=== PATIENT | male | born 1950 | race Caucasian/White ===

== ENCOUNTER → 2016-07-21 | Outpatient (CLI) | payer BC ==
[~2016-07-21] MED LIST: ACETTAB15; AMLO2.5T PO; ASPI-589 PO; CRS20 PO; GEMF600T3 PO; LSN5 PO; MULT-506 PO; NTRSLP4 SL; OMEG10007 PO; PLV75 PO; TPRSR25 PO
[2016-07-21 20:20] LABS: LYME DISEASE AB IGG NEG (NEG); LYME DISEASE AB IGM NEG (NEG)
== END | disposition home or self-care (01) ==
LOC: C.LABMFLN 07:50
PROVIDERS: ATTEND Family Medicine
DX: A69.20 Lyme disease, unspecified (principal)

== ENCOUNTER 2016-11-09 06:36 | Observation (INO) | payer BC ==
[2016-11-09] VITALS (15 sets, daily range): BP systolic 121–170; BP diastolic 80–90; PULSE 53–76; TEMP 36.4–36.7; O2SAT 95–99; Ht 167.6 cm; Wt 81.7 kg
[~2016-11-09] VITALS: Ht 167.6 cm; Wt 81.7 kg
[2016-11-09] MEDS ORDERED: GEMF600T3 PO (07:04)
[2016-11-09] MEDS ORDERED: MULT-506 PO (07:04)
[2016-11-09] MEDS ORDERED: ACETTAB14 (07:04)
[2016-11-09] MEDS ORDERED: OMEG10007 PO (07:04)
[2016-11-09] MEDS ORDERED: ASPI-589 PO (07:04)
[2016-11-09] MEDS ORDERED: AMLO2.5T PO (07:04)
[2016-11-09] MEDS ORDERED: NiCARDipine HCL INJ 2.5 MG/ML 10 ML AMP ONE (07:08)
[2016-11-09] MEDS ORDERED: FENTANYL CITRATE INJ 50 MCG/1 ML 2 ML VIAL ONE (07:08)
[2016-11-09] MEDS ORDERED: HEPARIN SOD (PORCINE) 1000 UNIT/ML 10 ML VIAL ONE ×2 (07:08→09:21)
[2016-11-09] MEDS ORDERED: MIDAZOLAM HCL 1 MG/ML 2ML VIAL ONE (07:08)
[2016-11-09] MEDS ORDERED: NITROGLYCERIN/D5W 100MCG/ML 20ML SYR ONE (07:09)
--- NOTE | 2016-11-09 09:06 | History & Physical Bridge Note ---
H&P Re-Evaluation Bridge Note: I have examined the patient, reviewed the History & Physical and in the interval since the performance of the History & Physical I have noted the following changes of clinical significance: No changes noted
--- NOTE | 2016-11-09 09:06 | Procedure Note ---
Pre-Mod Sedation Assessment General Date of Moderate Sedation: Nov 09, 2016. Vital Signs: Vital Signs Past 12 Hours Date Time Temp Pulse Resp B/P (MAP) Pulse Ox O2 Delivery O2 Flow Rate FiO2 11/09/16 06:57 36.4 65 16 170/90 98 Room Air Review Cardiovascular: regular rate, rhythm, no edema, no gallop Abdomen: normal bowel sounds, non tender Lungs: chest non-tender, lungs clear Pre-Sedation Airway Assessment Oral Cavity: WNL Short Thick Neck: No Hx of Sleep Apnea: No Smoking Status: Never Smoker Mallampati Classification: Class II ASA Classification: Class III Procedure Planning Contraindications-for Mod Sed: None Yes Notes The planned sedation has been discussed with the patient and consent obtained. I have identified the patient, determined the appropriateness of sedation and have assessed the patient immediately prior to the procedure. All medicine(s) and interventions are by my order.
--- NOTE | 2016-11-09 09:07 | Procedure Note ---
Post-Mod Sedation Assessment General Date of Moderate Sedation Nov 09, 2016. Vital Signs: Vital Signs Past 12 Hours Date Time Temp Pulse Resp B/P (MAP) Pulse Ox O2 Delivery O2 Flow Rate FiO2 11/09/16 06:57 36.4 65 16 170/90 98 Room Air Review - Discharge Criteria Vital Signs Stable: Yes Alert/Oriented/Conversant: Yes Returned to Baseline Mental St: N/A (sedated for PCI) Nausea Absent/Minimal: Yes Pain/Discomfort/Absent/Minimal: Yes Normal/Baseline Respirations: Yes Active Bleeding?: No Pt Received D/C Instructions: N/A Prescriptions Given: None Specific Proced. D/C Criteria Distal Pulses Present (Cardiac: Yes Groin site assessed-Card Cath: N/A Voided Prior To Discharge: N/A Discharged Patients Adult Escort/Transportation: N/A
[2016-11-09] MEDS ORDERED: CLOPIDOGREL BISULFATE 300 MG TAB PO ONE (09:21)
--- NOTE | 2016-11-09 09:21 | Cardiac Catheterization ---
Procedure Note Procedure Date Nov 09, 2016. Pre-Procedure Diagnosis Angina AUC Score 7 Post-Procedure Diagnosis Severe CAD Procedure(s) Performed Coronary Angiography, Left Heart Cath Svp Dr. Palomo Die Maker Bench Stamping(s) Mayito REHABILITATION INSPECTOR Estimated Blood Loss 3cc Medication(s) Fentanyl, Heparin, Nicardipine, Nitroglycerin, Versed, Lidocaine 1% Summary of Findings 90% mid RCA 50% mid LAD Hemodynamics Rest Ao: 123/76/101 Final Ao: 134/76/100 LV: 132/2/14 Recommendations PCI without planned CABG Specimens None Radiation Exposure (mGy) 1251 Contrast (mls) 60 Anesthesia Moderate sedation. Start 0829, End 0859. Sedation RN : Camille Mathias Procedural Complication(s) None Disposition labor mediator for PCI with Dr. Smith ACC Data Cardiac Status Clinical evaluation leading to the procedure CAD Presntation: Unstable angina Anginal Classification: CCS III Heart Failure: No Cardiogenic Shock w/in 24Hrs: No Cardiac Arrest w/in 24Hrs: No Imaging studies past 6 months: Yes Stress studies past 6 months: Yes Stress Echocardiogram: Yes - Indeterminant Coronary Anatomy Dominant: Right Left Main (% Stenosis): Normal LAD (% Stenosis): Proximal (10%), Mid (50%), Distal (10-20%) D1 (% Stenosis): Proximal (20%), Mid (50% at bifurcation), Distal (10%) D2 (% Stenosis): Normal Circumflex (% Stenosis): Ostial (mild luminal irregularities throughout vessel , 10%) OM1 (% Stenosis): Normal OM2 (% Stenosis): Proximal (20%), Mid (20%), Distal (10%) L PL1 (% Stenosis): Proximal (30%) RCA (% Stenosis): Proximal (90%), Mid (30%), Distal (10%) R PDA (% Stenosis): Proximal (10%), Mid (40%), Distal (10%) R PL1 (% Stenosis): Normal AM (% Stenosis): Normal Diagnostic Status: Elective Closure Device Percutaneous Entry Location: Radial Closure Device: Radial Band Intraprocedure Events Significant Dissection: No Perforation: No
[2016-11-09] MEDS ORDERED: EPTIFIBATIDE 2 MG/ML 10 ML VIAL IV ONE (09:24)
[2016-11-09] MEDS ORDERED: EPTIFIBATIDE 0.75 MG/ML 75MG VIAL IV ONE (09:24)
[2016-11-09] MEDS ORDERED: METOPROLOL SUCC 50MG EXT REL TAB PO STA (10:17)
[2016-11-09] MEDS ORDERED: NITROGLYCERIN 0.4 MG SL PER TAB CHARGE SL PRN (10:30)
[2016-11-09] MEDS ORDERED: ALUMINUM/MAGNESIUM/SIMETH (MAALOX MAX) 30 ML UDC PO PRN (10:30)
[2016-11-09] MEDS ORDERED: MAGNESIUM HYDROXIDE SUSP 30 ML UDC PO PRN (10:30)
[2016-11-09] MEDS ORDERED: MoRPHine SULFATE 2 MG/ML CARP IV PRN (10:30)
[2016-11-09] MEDS ORDERED: ACETAMINOPHEN 325 MG TAB PO PRN ×2 (10:30)
[2016-11-09] MEDS ORDERED: ATROPINE SULFATE 0.1 MG/ML 5ML SYR IV PRN (10:30)
[2016-11-09] MEDS ORDERED: LORAZEPAM INJ 0.5 MG in SYRINGE 0 ML IV PRN (10:30)
[2016-11-09] MEDS ORDERED: EPTIFIBATIDE BOLUS / DRIP IV ONE (10:30)
[2016-11-09] MEDS ORDERED: ATORVASTATIN 40 MG TAB PO ONE (10:30)
[2016-11-09] MEDS ORDERED: ONDANSETRON INJ 2 MG/ML 2 ML VIAL IV PRN (10:30)
[2016-11-09] MEDS ORDERED: ZOLPIDEM TARTRATE 5 MG TAB PO PRN (10:30)
[2016-11-09] MEDS ORDERED: POLYETHYLENE (MIRALAX) 17 GM PACK PO PRN (10:30)
[2016-11-09] MEDS ORDERED: LORAZEPAM 2 MG/ML 1 ML VIAL IV PRN (10:45)
--- NOTE | 2016-11-09 11:24 | Cardiac Catheterization ---
Procedure Note Procedure Date Nov 09, 2016. Pre-Procedure Diagnosis Angina, CAD AUC Score 9 Post-Procedure Diagnosis Successful PCI Procedure(s) Performed Coronary Angiography, PTCA, Drug Eluting Stent Denture Contour Wire Specialist Dr. Smith Corporate Health Consultant(s) MARCIA Vargas Estimated Blood Loss 25 ml Medication(s) Clopidogrel (600 milligrams p.o. post PCI), Heparin, Integrilin, Nicardipine ( Intra-arterial and intracoronary) Summary of Findings Clinical indications: Unstable angina, severe mid right coronary artery stenosis noted on diagnostic cardiac catheterization performed by Dr. Tj Palomo. The patient was referred for intervention to the mid RCA stenosis. Catheterization site: 6 [place] Slender [place] right radial artery. This had been inserted at time of diagnostic catheterization. Equipment: 6 [place] JR4 guide catheter, [place] guidewire, Medtronic Sprinter 2.5 x 12 millimeter balloon dilatation catheter, Hi 4 x 28 millimeter and 4 x 15 millimeter Xience drug-eluting stents, Medtronic NC 4.5 x 15 millimeter Sprinter balloon dilatation catheter. Interventional protocol: Intravenous heparin and Integrilin were administered. A therapeutic activated clotting time was documented. PTCA was then performed with the 2.5 x 15 millimeter balloon to the mid RCA. Two inflations to 8 atmospheres for 15 seconds performed. The 4 by 28 millimeter stent was then deployed all in the mid RCA at a pressure of 10 atmospheres for duration of 45 seconds. Follow-up angiography was performed. Post stent deployment noncompliant balloon inflation was then performed with the NC sprinter balloon. The distal balloon was well inside of the stent. One inflation to 10 atmospheres was performed. Follow-up angiography revealed probable dissection distal to the stent. The NC balloon was withdrawn and a Xience 4 x 15 millimeter stent was then deployed distal to the 1st stent in an overlapping fashion. Deployed at 10 atmospheres for 45 seconds. The overlap site of the 2 stents was post dilated with the stent delivery balloon to a pressure of 14 atmospheres for duration of 15 seconds. Noncompliant balloon was then reinserted and 3 inflations were performed to the proximal mid segments of the stented region in the mid RCA. Maximum inflation pressure of 15 atmospheres and maximum duration 18 seconds. Follow-up angiography was then performed from orthogonal projections with guidewire in place and then guidewire withdrawn. When the dissection was noted the patient complained of mild burning chest discomfort. This resolved after deployment of the 2nd stent. At the completion of the procedure he had no cardiac, coronary, or vascular complaints. He was hemodynamically stable. He was electrically stable. Hemostasis: Terumo TR band. Complications: An edge dissection distal to the 1st stent. This occurred after post stent delivery noncompliant balloon inflation. Successful treatment with deployment of a 2nd stent. Findings: Guiding angiography revealed the RCA to be a large caliber vessel. DIONISIO 2 flow into the PDA and posterolateral branches. 95-99 percent mid RCA stenosis. Mid RCA also had diffuse disease with up to 20-70 percent luminal diameter narrowing. The latter mid RCA had an eccentric 30 percent stenosis. Following initial PTCA DIONISIO 3 flow was present into the distal RCA and its branches. Following deployment of the 1st stent and initial post stent deployment noncompliant balloon inflation an edge dissection was present distal to the 1st stent. This resulted in up to 90 percent luminal diameter narrowing. There remained DIONISIO 3 flow into the PDA and posterolateral branches of the RCA. following deployment of the 2nd stent and post 2nd stent delivery noncompliant balloon inflations the residual stenosis at the stent sites in the mid RCA was 0-10 percent. There was no evidence of any residual dissection. No thrombus, perforation, or distal embolic event. DIONISIO 3 flow in the RCA and its branches. Plan: The patient will remain on intravenous Integrilin for 18 hours. He was given a loading dose of clopidogrel 600 milligrams post PCI. Should remain on dual antiplatelet therapy for at least 1 year. Aspirin therapy indefinitely. He will be started on atorvastatin, metoprolol, and lisinopril therapy. Post PCI labs and electrocardiograms ordered. Will be admitted for observation overnight. Will continue cardiology follow-up with the [facility] cardiology service. Hemodynamics Rest Ao: 123/76/101 mm Hg Final Ao: 163/87/122 mm Hg LV: NA Recommendations Medical therapy and/or Counseling, PCI without planned CABG Specimens None Radiation Exposure (mGy) 3060 total for both diagnostic and interventional procedure Contrast (mls) 270 ml Visipaque total for both procedures Fluids (cc crystalloids) 195 total for both procedures Drains none Anesthesia No additional Procedural Complication(s) Intimal dissection following deployment of 1st stent. This occurred distal to the 1st stent. Treated successfully with deployment of a 2nd stent. Disposition PCU ACC Data Cardiac Status Clinical evaluation leading to the procedure CAD Presntation: Unstable angina Anginal Classification: CCS III Heart Failure: No Cardiogenic Shock w/in 24Hrs: No Cardiac Arrest w/in 24Hrs: No Imaging studies past 6 months: Yes Stress studies past 6 months: Yes Standard Exercise Stress Test: Yes - Indeterminant Diagnostic Physician's Name: Tj Palomo DO Status: Elective Closure Device Percutaneous Entry Location: Radial Lesion Segment Name: Mid RCA Culprit Artery: Yes Stenosis Prior to Rx (%): 95-99 Chronic Total Occlusion: No IVUS: No FFR: No Pre-Procedure DIONISIO Flow: 2 Previously Treated Lesion: No Lesion Complexity: High/C Lesion Length (mm): 30 Thrombus Present: No Bifurcation Lesion: No Guidewire Across Lesion: Yes Guidewire: Stenosis Post-Procedure (%): 0 Post-Procedure DIONISIO Flow: 3 Device(s) Deployed: Yes Type of Device(s): Hi Xience 4 x 28 millimeter and 4 x 15 millimeter drug-eluting stents. Deployed in overlapping fashion. The 4 x 28 millimeter stent was 1st deployed. Following this stent deployment there was an edge dissection distal to the stent. The 4 x 15 millimeter Xience stent was then deployed distal to the 1st stent in an overlapping fashion. The proximal and mid segments of the stented region were post dilated with a 4.5 x 15 millimeter noncompliant balloon. Intraprocedure Events Significant Dissection: Yes (This occurred distal to the 1st stent after post stent noncompliant balloon inflation. Successfully treated with deployment of a 2nd stent.) Perforation: No
[2016-11-09 11:27] LABS: BASO % 0.2 %; BASO ABS # 0.01 K/uL (0-0.2); EOS % 1.2 %; IG% 0.2 %; LYMPH % 38.3 %; MEAN CELL VOLUME 87.7 fL (80-100); MEAN CORPUSCULAR HEMOGLOBIN 30.3 pg (25-34); MEAN PLATELET VOLUME 11.2 fL (7.4-10.4); MONO % 7.2 %; NEUT % 52.9 %; PLATELET COUNT 206 K/uL (130-400); RED BLOOD COUNT 4.79 M/uL (4.7-6.1); WHITE BLOOD COUNT 4.18 K/uL (4.8-10.8)
[2016-11-09] MEDS ORDERED: IV FLUIDS COMPLETED PRN (11:30)
[2016-11-09 11:38] LABS: COMPLETE YES; MEAN CORPUSCULAR HGB CONC 34.5 g/dl (32-36)
[2016-11-09 11:45] LABS: BUN/CREATININE RATIO 22.7 (10-20); CALCIUM 8.7 mg/dl (8.5-10.1); CREATININE 0.74 mg/dl (0.60-1.40); POTASSIUM 4.1 mmol/L (3.5-5.1)
[2016-11-09] MEDS ORDERED: ROSUVASTATIN CALCIUM 20 MG TAB PO ONE (13:20)
[2016-11-09] MEDS: SODIUM CHLORIDE 0.9% 1000ML 1,000 ML IV SCH ×3 (15:32→23:48)
[2016-11-09] MEDS: EPTIFIBATIDE INJ 75 MG PREMIXED IV SCH ×2 (17:04→22:17)
[2016-11-10] VITALS: BP 135/92; PULSE 56; TEMP 37.1; O2SAT 96
[2016-11-10 04:00] VITALS: BP 148/82; PULSE 60; TEMP 36.7; O2SAT 95
[2016-11-10] MEDS ORDERED: Integrelin infusion --> STOP ORDER ONE (04:00)
[2016-11-10 06:13] LABS: BASO % 0.3 %; BASO ABS # 0.02 K/uL (0-0.2); COMPLETE YES; EOS % 1.4 %; HEMATOCRIT 37.9 % (42-52); IG% 0.2 %; LYMPH % 24.7 %; LYMPH ABS # 1.56 K/uL (1.2-3.4); MEAN CELL VOLUME 87.7 fL (80-100); MEAN CORPUSCULAR HEMOGLOBIN 30.8 pg (25-34); MEAN CORPUSCULAR HGB CONC 35.1 g/dl (32-36); MEAN PLATELET VOLUME 10.9 fL (7.4-10.4); MONO % 7.6 %; NEUT % 65.8 %; PLATELET COUNT 181 K/uL (130-400); RED BLOOD COUNT 4.32 M/uL (4.7-6.1); WHITE BLOOD COUNT 6.32 K/uL (4.8-10.8)
[2016-11-10 07:00] LABS: BUN/CREATININE RATIO 21.1 (10-20); CALCIUM 8.3 mg/dl (8.5-10.1); CREATININE 0.7 mg/dl (0.60-1.40); POTASSIUM 3.7 mmol/L (3.5-5.1)
[2016-11-10 08:20] VITALS: BP 143/91; PULSE 57; TEMP 36.7; O2SAT 96
[2016-11-10] MEDS ORDERED: MULTIVITAMIN TAB PO SCH (09:00)
[2016-11-10] MEDS ORDERED: CLOPIDOGREL BISULFATE 75 MG TAB PO SCH (09:00)
[2016-11-10] MEDS ORDERED: OMEGA-3 (PURIFIED FISH OIL) 1 GM CAP PO SCH (09:00)
[2016-11-10] MEDS ORDERED: ASPIRIN 81 MG ECTAB PO SCH ×2 (09:00)
[2016-11-10] MEDS ORDERED: ATORVASTATIN 40 MG TAB PO SCH (09:00)
[2016-11-10] MEDS ORDERED: ROSUVASTATIN CALCIUM 20 MG TAB PO SCH (09:00)
[2016-11-10] MEDS ORDERED: LISINOPRIL 5 MG TAB PO SCH (09:00)
--- NOTE | 2016-11-10 10:25 | Cardiology Follow-Up ---
Subjective General Date of Service: Nov 10, 2016. Pt evaluation today including: conversation w/ patient, conversation w/ family , physical exam, chart review, lab review, review of studies, review of inpatient medication list History of Present Illness The patient is a 66 year old male seen in follow up. Patient feeling well from a cardiovascular standpoint. Right wrist is healing well. No ecchymosis or hematoma. Ambulating in the halls without chest discomfort or unusual shortness of breath. Anxious for discharge. Denies lightheadedness or dizziness. Offers no complaints this time. Occasional PVCs with one 3 beat run of PVC's recorded overnight. Allergies Coded Allergies: No Known Allergies (Unverified , 11/09/16) Social History Smoking Status: Never Smoker Hx Alcohol Use - Type And Amou: Yes (1-3 cans beer/week) Hx Substance Use - Type And Am: No Review of Systems Respiratory: No cough, No sputum, No wheezing, No shortness of breath, No dyspnea at rest, No hemoptysis Cardiac: No chest pain, No orthopnea, No PND, No edema, No palpitations Physical Exam Vital Signs Last Vital Signs Documentation Date Time Temp Pulse Resp B/P (MAP) Pulse Ox O2 Delivery O2 Flow Rate FiO2 11/10/16 08:20 36.7 57 16 143/91 (108) 96 Room Air Physical Exam Constitutional: General Apperance: heathly-appearing Level of Distress: NAD Ambulation: ambulating normally Head: normocephalic ENMT: normal ENT inspection, hearing grossly normal Neck: supple, trachea midline Lungs: Respiratory effort: no dyspnea Auscultation: breath sounds normal, no wheezing, no rales/crackles, no rhonchi Cardiovascular: Heart Auscultation: RRR, normal S1, normal S2, no murmurs Musculoskeletal: normal, normal strength (5/5 throughout) Extremities: no cyanosis, no edema, no clubbing, no ulcers Neurologic: Gait & Station: pertinent finding (no focal deficit.) Cranial Nerves: grossly intact Assessment and Plan Assessment and Plan Imp: 1. Unstable angina status post drug-eluting stent in [place] 2 to the right coronary artery. Residual moderate, 50% LAD stenosis noted. 2. Dyslipidemia previously treated with gemfibrozil and transition to Crestor during this hospitalization due to reported intolerance of atorvastatin related to elevated transaminases. Plan/recommendations: Discussed importance of continuing dual antiplatelet therapy uninterrupted for a minimum of 1 year post percutaneous intervention. Patient voices understanding. He also continue Crestor, beta elizabeth and lisinopril. Cardiology follow-up scheduled with Dr. Huntley on November 19. Will discharge to home today. All questions answered to the satisfaction of both the patient and his . Laboratory Results Last 24 Hours Test 11/09/16 11:06 11/10/16 05:50 White Blood Count 4.18 K/uL 6.32 K/uL Red Blood Count 4.79 M/uL 4.32 M/uL Hemoglobin 14.5 g/dL 13.3 g/dL Hematocrit 42.0 % 37.9 % Mean Corpuscular Volume 87.7 fL 87.7 fL Mean Corpuscular Hemoglobin 30.3 pg 30.8 pg Mean Corpuscular Hemoglobin Concent 34.5 g/dl 35.1 g/dl Platelet Count 206 K/uL 181 K/uL Mean Platelet Volume 11.2 fL 10.9 fL Neutrophils (%) (Auto) 52.9 % 65.8 % Lymphocytes (%) (Auto) 38.3 % 24.7 % Monocytes (%) (Auto) 7.2 % 7.6 % Eosinophils (%) (Auto) 1.2 % 1.4 % Basophils (%) (Auto) 0.2 % 0.3 % Neutrophils # (Auto) 2.21 K/uL 4.16 K/uL Lymphocytes # (Auto) 1.60 K/uL 1.56 K/uL Monocytes # (Auto) 0.30 K/uL 0.48 K/uL Eosinophils # (Auto) 0.05 K/uL 0.09 K/uL Basophils # (Auto) 0.01 K/uL 0.02 K/uL RDW Standard Deviation 41.3 fL 41.6 fL RDW Coefficient of Variation 12.9 % 12.9 % Immature Granulocyte % (Auto) 0.2 % 0.2 % Immature Granulocyte # (Auto) 0.01 K/uL 0.01 K/uL Sodium Level 139 mmol/L 140 mmol/L Potassium Level 4.1 mmol/L 3.7 mmol/L Chloride Level 107 mmol/L 110 mmol/L Carbon Dioxide Level 24 mmol/L 23 mmol/L Anion Gap 8.0 mmol/L 7.0 mmol/L Blood Urea Nitrogen 17 mg/dl 15 mg/dl Creatinine 0.74 mg/dl 0.70 mg/dl Est Creatinine Clear Calc Drug Dose 99.1 ml/min 107.0 ml/min Estimated GFR () 113.0 115.6 Estimated GFR (Non- 97.5 99.7 BUN/Creatinine Ratio 22.7 21.1 Random Glucose 103 mg/dl 92 mg/dl Calcium Level 8.7 mg/dl 8.3 mg/dl Total Bilirubin 0.7 mg/dl Aspartate Amino Transf (AST/SGOT) 26 U/L Alanine Aminotransferase (ALT/SGPT) 24 U/L Alkaline Phosphatase 77 U/L Total Protein 6.7 gm/dl Albumin 3.4 gm/dl Globulin 3.3 gm/dl Albumin/Globulin Ratio 1.0
[2016-11-10] MEDS ORDERED: METOPROLOL SUCC 25MG EXT REL TAB PO ONE (10:26)
[2016-11-10] MEDS ORDERED: PLV75 PO (10:32)
[2016-11-10] MEDS ORDERED: TPRSR25 PO (10:32)
[2016-11-10] MEDS ORDERED: NTRSLP4 SL (10:32)
[2016-11-10] MEDS ORDERED: CRS20 PO (10:32)
[2016-11-10] MEDS ORDERED: LSN5 PO (10:32)
--- NOTE | 2016-11-10 10:33 | Discharge Instructions ---
Discharge Instructions Procedure Procedure Date: Nov 10, 2016. Reason for Visit: Cad, Stented Coronary Artery. Discharge Discharge Date: Nov 10, 2016. Discharge Diagnosis: CAD s/p drug eluting stent x2 to RCA Last Recorded Wt (Kilograms): 81.700 Anesthesia Post Anesthesia Instructions: If you have had General Anesthesia or IV Sedation: * Do not drive today. * Resume driving when surgeon permits. * Do not make important decisions or sign legal documents today. * Call surgeon for: 1. Temperature elevations greater than 101 degrees F. 2. Uncontrollable pain. 3. Excessive bleeding. 4. Persistent nausea and vomiting. 5. Medication intolerance (nausea, vomiting or rash). * For nausea and vomiting use only clear liquids such as: tea, soda, bouillon until nausea subsides, then gradually increase diet as tolerated. * If you have any concerns or questions, call your surgeon's office. If physician is unavailable and it is an emergency, call 911 or go to the nearest emergency room. Instructions Activity Recommendations: limitations as noted below Return to School/Work: with the following limitations Recommended Home Diet: low cholesterol Allergies: Coded Allergies: No Known Allergies (Unverified , 11/09/16) Provider Instructions ACTIVITY RECOMMENDATIONS: It is common to feel weak and fatigue for a few days. * Do not drive or operate any motorized equipment for the next three days. * Limit stair usage (2 or 3 trips a day only) for the next three days. * Do not lift anything heavier than 10 pounds for the next three days. * Do not engage in vigorous exercise or any sports for the next five days. * You may shower the day after your procedure, but do not immerse the area for three days. Cleanse the site gently with soap and water. SPECIAL CARE INSTRUCTIONS: * You may replace the pressure dressing or band-aid the morning after the procedure. * After your procedure, it is normal to have a small bruise or small lump at the site. Examine your site daily for any change in the bruise or lump, redness, swelling, drainage or numbness. Notify your doctor if any change. BLEEDING: * If there is a small amount of bleeding at the site, lie down and apply firm pressure with a clean cloth for ten minutes. When the bleeding stops, lie quietly keeping the procedure limb straight for six hours. Notify your doctor as soon as possible. * If the bleeding does not stop after ten minutes or if there is a large amount of bleeding or spurting, call 911 immediately. Continue to lie down and hold firm pressure until help arrives. SKIN IRRITATION: * You may experience some redness and/or swelling in the area where radiation was administered. If any skin irritation occurs, please contact your family physician. FOLLOW UP VISIT: Keep any scheduled doctor appointments. Follow Up Follow-up with: Dr. Huntley as scheduled. Office number [phone] [facility] Recommendations: Call your doctor if: * Temperature above 101 degrees * Pain not relieved by pain medicine ordered * There is increased drainage or redness from any incision * You have any unanswered questions or concerns. Your Doctors Instructions noted above were prepared by provider Tj Palomo. Patient Signature Section: Patient Instructions Signature Page Carlo Thacker Patient (or Guardian) Signature/Date: I have read and understand the instructions given to me by my caregivers. Caregiver/RN/Doctor Signature/Date: The above-named patient and/or guardian has received patient instructions on this date. + Original Patient Signature Page (only) stays with chart. Please make copy for patient.
[2016-11-10 10:40] VITALS: BP 143/91; PULSE 57; TEMP 36.7; O2SAT 96
--- NOTE | 2016-11-10 15:39 | DISCHARGE SUMMARY ---
ATTENDING PHYSICIAN: Dr. Tj Palomo D.O., [facility] ADMISSION DIAGNOSES: 1. Unstable angina. 2. Abnormal stress testing. 3. Hypertension. 4. Dyslipidemia. DISCHARGE DIAGNOSES: 1. Severe coronary disease status post drug eluting stent implantation x2 to the right coronary artery in an overlapping fashion. 2. Residual coronary artery disease with 50% mid LAD stenosis. 3. Hypertension. 4. Dyslipidemia. PROCEDURES DURING HOSPITALIZATION: Left heart catheterization with coronary angiography and drug eluting stent implantation to the right coronary artery. CONSULTANTS DURING HOSPITALIZATION: Dr. Eliel Smith, interventional cardiology. ADMISSION MEDICATIONS: 1. Gemfibrozil 600 mg twice daily. 2. ProAir inhaler 2 puffs every 4 hours as needed. 3. Aspirin 325 mg on the day of procedure. 4. Norvasc 2.5 mg daily. 5. Fish Oil 1 gram daily. DISCHARGE MEDICATIONS: 1. Aspirin 81 mg daily. 2. Plavix 75 mg daily. 3. Toprol XL 25 mg daily. 4. Lisinopril 5 mg daily. 5. Fish Oil 1 gram daily. 6. Crestor 20 mg daily. 7. Sublingual nitroglycerin as needed. HOSPITAL COURSE: The patient was electively admitted for observation on 11/09/2016. The patient presented for cardiac catheterization. The procedure was performed via a right radial approach. Angiography demonstrated severe mid RCA stenosis as well as moderate mid LAD stenosis. Two drug eluting stents were implanted in overlapping fashion by interventional cardiology on 11/09/2016. The procedure was uncomplicated. The patient was observed overnight. Medication changes were made as noted above. The importance of dual antiplatelet therapy for a minimum of 1 year was stressed at the time of discharge. The patient was initially prescribed atorvastatin, however, reported intolerance to this medication due to elevated transaminases. He was subsequently transitioned to Crestor 20 mg daily. Outpatient followup with Dr. Huntley scheduled. He was discharged to home in stable condition. Please note this discharge summary may contain errors and omissions. Please see the full body of the medical record for details regarding hospitalization.
[2016-11-11] MEDS ORDERED: METOPROLOL SUCC 25MG EXT REL TAB PO SCH (09:00)
== END 2016-11-10 11:30 | disposition home or self-care (01) ==
LOC: C.CATH 06:36 → ENRESERV 09:11 → C.2T 10:16
PROVIDERS: ADMIT Internal Medicine Cardiovascular Disease; ATTEND Internal Medicine Cardiovascular Disease
DX: I25.110 Atherosclerotic heart disease of native coronary artery with unstable angina pectoris (principal); I25.42 Coronary artery dissection; I10 Essential (primary) hypertension; J45.990 Exercise induced bronchospasm; E78.5 Hyperlipidemia, unspecified; E78.1 Pure hyperglyceridemia; Z82.49 Family history of ischemic heart disease and other diseases of the circulatory system; Z80.1 Family history of malignant neoplasm of trachea, bronchus and lung
CPT/HCPCS: 93458; C9600

== ENCOUNTER → 2017-01-05 | Outpatient (CLI) | payer BC ==
[~2017-01-05] MED LIST changes: -ACETTAB15; -AMLO2.5T PO; -GEMF600T3 PO
[2017-01-05 13:46] LABS: BLOOD UREA NITROGEN 24 mg/dl (7-18); BUN/CREATININE RATIO 23.3 (10-20); CALCIUM 8.9 mg/dl (8.5-10.1); CARBON DIOXIDE 26 mmol/L (21-32); CHLORIDE 105 mmol/L (98-107); CREATININE 1.04 mg/dl (0.60-1.40); GLUCOSE 141 mg/dl (70-99); POTASSIUM 4.2 mmol/L (3.5-5.1); SODIUM 137 mmol/L (136-145)
== END | disposition home or self-care (01) ==
LOC: C.LABMFLN 11:17
PROVIDERS: ATTEND Family Medicine
DX: I10 Essential (primary) hypertension (principal)

== ENCOUNTER → 2017-03-30 | Outpatient (CLI) | payer OTHER | END | disposition home or self-care (01) | LOC: C.LABMFLN 09:27 | PROVIDERS: ATTEND Family Medicine | DX: I10 Essential (primary) hypertension (principal); Z12.5 Encounter for screening for malignant neoplasm of prostate ==

== ENCOUNTER → 2017-04-01 | Outpatient (CLI) | payer OTHER ==
[2017-04-01 12:40] LABS: BASO % 0.4 %; BASO ABS # 0.02 K/uL (0-0.2); EOS % 2.5 %; EOS ABS # 0.12 K/uL (0-0.5); HEMATOCRIT 42.9 % (42-52); HEMOGLOBIN 15.1 g/dL (14.0-18.0); IG# 0.01 K/uL (0.00-0.02); LYMPH ABS # 1.55 K/uL (1.2-3.4); MEAN CORPUSCULAR HEMOGLOBIN 30.6 pg (25-34); MEAN CORPUSCULAR HGB CONC 35.2 g/dl (32-36); MEAN PLATELET VOLUME 11.2 fL (7.4-10.4); MONO % 9.3 %; MONO ABS # 0.45 K/uL (0.11-0.59); NEUT % 55.6 %; PLATELET COUNT 175 K/uL (130-400); RED CELL DISTRIBUTION WIDTH CV 12.6 % (11.5-14.5); RED CELL DISTRIBUTION WIDTH SD 40.7 fL (36.4-46.3); WHITE BLOOD COUNT 4.85 K/uL (4.8-10.8)
== END | disposition home or self-care (01) ==
LOC: C.LABMFLN 09:18
PROVIDERS: ATTEND Family Medicine
DX: R53.83 Other fatigue (principal)

== ENCOUNTER → 2017-10-07 | Outpatient (CLI) | payer OTHER ==
[~2017-10-07] MED LIST changes: +LISI-730 PO; -LSN5 PO
[2017-10-07 12:52] LABS: BASO % 0.4 %; BASO ABS # 0.02 K/uL (0-0.2); EOS % 1.8 %; EOS ABS # 0.09 K/uL (0-0.5); HEMATOCRIT 42.6 % (42-52); HEMOGLOBIN 14.7 g/dL (14.0-18.0); IG# 0.01 K/uL (0.00-0.02); LYMPH % 37.9 %; LYMPH ABS # 1.86 K/uL (1.2-3.4); MEAN CELL VOLUME 87.7 fL (80-100); MEAN CORPUSCULAR HEMOGLOBIN 30.2 pg (25-34); MEAN CORPUSCULAR HGB CONC 34.5 g/dl (32-36); MEAN PLATELET VOLUME 11.2 fL (7.4-10.4); MONO % 6.5 %; MONO ABS # 0.32 K/uL (0.11-0.59); NEUT % 53.2 %; NEUT ABS # 2.61 K/uL (1.4-6.5); PLATELET COUNT 187 K/uL (130-400); RED CELL DISTRIBUTION WIDTH CV 12.9 % (11.5-14.5); RED CELL DISTRIBUTION WIDTH SD 41.3 fL (36.4-46.3); WHITE BLOOD COUNT 4.91 K/uL (4.8-10.8)
== END | disposition home or self-care (01) ==
LOC: C.LABMFLN 10:18
PROVIDERS: ATTEND Family Medicine
DX: R53.83 Other fatigue (principal)